=== PATIENT | female | born 1985 | race American Indian/Alaskan Native ===

== ENCOUNTER 2018-02-17 22:32 | Emergency (ER) | payer BC, MEDICAID ==
[2018-02-17 22:57] VITALS: BP 117/66
[2018-02-18 00:20] LABS: Basophils % (Auto) 0.3 % (0.0-1.8); Eosinophils # (Auto) 0.1 K/mm3 (0.0-0.4); Eosinophils % (Auto) 0.7 % (0.0-4.3); Hematocrit 34.8 % (30.3-42.9); Hemoglobin 11.6 gm/dl (10.1-14.3); Lymphocytes # (Auto) 2.8 K/mm3 (1.2-5.4); Lymphocytes % (Auto) 21.5 % (13.4-35.0); Mean Corpuscular HGB Conc 33 % (30-34); Mean Corpuscular Hemoglobin 29 pg (28-32); Mean Corpuscular Volume 86 fl (79-97); Monocytes # (Auto) 0.6 K/mm3 (0.0-0.8); Monocytes % (Auto) 4.8 % (0.0-7.3); Platelet Count 295 K/mm3 (140-440); Red Blood Count 4.04 M/mm3 (3.65-5.03)
--- NOTE | 2018-02-19 14:29 | Ultrasound Report ---
FINAL REPORT PROCEDURE: US OB > = 14 WEEKS FETUS TECHNIQUE: Real-time limited sonographic examination was performed for evaluation of size, position, heartbeat, fluid volume for each fetus with image documentation (1 or more fetuses). CPT 30584 HISTORY: vaginal bleeding COMPARISON: No prior studies are available for comparison. FINDINGS: MATERNAL Uterus: Within normal limits . Cervix length: 3.5 cm. Internal Os: Closed . FETUS IUP: Single living intrauterine . Position: Cephalic. Placental position: Posterior, without previa . Amniotic fluid volume: Normal . Heart rate and rhythm: 148 BPM, Regular . anatomic survey: Normal . MEASUREMENTS BPD: 2.7 centimeters corresponding to 14 weeks and 5 days HC: 9.9 centimeters correspond to 14 weeks and 4 days. AC: 7.7 centimeters correspond to 14 weeks and 1 day. FL: 1.5 centimeters correspond to 14 weeks and 3 days. Mean Gestational Age (composite criteria): 14 weeks and 3 days. Ratio biometry: Normal . Estimated Weight: grams. Interval growth: Appropriate . Estimated Due Date (earliest scan): 08/16/2018. IMPRESSION: 1. Single living intrauterine gestation at approximately 14 weeks and 3 days. 2. EDC by US 08/16/2018.
== END 2018-02-18 03:00 | disposition left against medical advice (07) ==
LOC: ED 22:32
DX: N93.9 Abnormal uterine and vaginal bleeding, unspecified (principal); Z53.21 Procedure and treatment not carried out due to patient leaving prior to being seen by health care provider
CPT/HCPCS: 36415; 76805; 84702; 85025; 86850; 86900; 86901

== ENCOUNTER 2018-04-03 07:34 | Outpatient (CLI) | payer BC, OTHER ==
--- NOTE | 2018-05-10 18:08 | Vascular Lab Report ---
Inferior vena cava duplex Reason for exam: Inferior vena cava mass Comments: The study is somewhat technically limited because the patient is 20 weeks . The inferior vena cava was visualized and no masses were identified. No evidence of thrombosis was seen in the common iliac veins, external iliac veins, or the common femoral veins. Impression: This study does not support the presence of an inferior vena cava mass. No evidence of acute deep venous thrombosis noted in the veins visualized. Study is somewhat technically limited because of patient's .
== END 2018-04-03 07:35 | disposition home or self-care (01) ==
LOC: VAS 07:34
PROVIDERS: ATTEND Surgery Vascular Surgery
DX: O9A.212 Injury, poisoning and certain other consequences of external causes complicating pregnancy, second trimester (principal); S35.1 Injury of inferior vena cava; Z3A.26 26 weeks gestation of pregnancy; Z87.891 Personal history of nicotine dependence; X58.XXXS Exposure to other specified factors, sequela
CPT/HCPCS: 93979

== ENCOUNTER 2018-07-12 10:30 | Outpatient (CLI) | payer BC, OTHER ==
[2018-07-12 11:13] VITALS: BP 117/68
[2018-07-12 11:22] LABS: Bilirubin,Urine NEG (Negative); Blood,Urine SM (Negative); Color,Urine Yellow (Yellow); Mucus,Urine FEW /HPF; Protein,Urine <15 mg/dL mg/dL (Negative); Urobilinogen,Urine < 2.0 mg/dL (<2.0)
[2018-07-12] MEDS ORDERED: LACTATED RINGERS 500 ML IV ONE (12:10)
== END 2018-07-12 12:51 | disposition home or self-care (01) ==
LOC: TRG 10:30
PROVIDERS: ATTEND Obstetrics & Gynecology
DX: O47.03 False labor before 37 completed weeks of gestation, third trimester (principal); Z3A.35 35 weeks gestation of pregnancy
CPT/HCPCS: 59025; 81001

== ENCOUNTER 2019-04-15 17:58 | Emergency (ER) | payer SELFPAY ==
--- NOTE | 2019-04-15 18:59 | Emergency Department Report ---
Blank Doc - Documentation Documentation: This is a 33-year-old female that presents with pelvic pain and headache. Den ies worst headache. Denies any vaginal bleeding. Denies any head trauma. Stated is but denies knowing how long. This initial assessment/diagnostic orders/clinical plan/treatment(s) is/are subject to change based on patient's health status, clinical progression and re- assessment by fellow clinical providers in the ED. Further treatment and workup at subsequent clinical providers discretion. Patient/guardians urged not to elope from the ED as their condition may be serious if not clinically assessed and managed. Initial orders include: 1- Patient sent to [facility] for further evaluation and treatment 2- labs 3- UA
[2019-04-15 19:01] VITALS: BP 111/71
[2019-04-15 20:27] LABS: Basophils # (Auto) 0.1 K/mm3 (0.0-0.1); Basophils % (Auto) 0.4 % (0.0-1.8); Eosinophils % (Auto) 0.4 % (0.0-4.3); Hematocrit 36.7 % (30.3-42.9); Hemoglobin 12.5 gm/dl (10.1-14.3); Lymphocytes # (Auto) 2.9 K/mm3 (1.2-5.4); Lymphocytes % (Auto) 21.5 % (13.4-35.0); Mean Corpuscular HGB Conc 34 % (30-34); Mean Corpuscular Volume 86 fl (79-97); Monocytes # (Auto) 0.6 K/mm3 (0.0-0.8); Monocytes % (Auto) 4.8 % (0.0-7.3); Platelet Count 305 K/mm3 (140-440); Red Blood Count 4.25 M/mm3 (3.65-5.03)
[2019-04-15 20:41] LABS: BUN/Creatinine Ratio 18; Blood Urea Nitrogen 7 mg/dL (7-17); Calcium 10.1 mg/dL (8.4-10.2); Hemolysis Index 3
--- NOTE | 2019-04-15 21:06 | Ultrasound Report ---
ULTRASOUND OBSTETRIC Indication: female with pelvic pain. Findings: There is a single, living intrauterine . The femur length measures 1.1 cm at 13 weeks and 2 days and bipyramidal diameter is 1.9 cm measuring 13 weeks and 0 days. heart rate is 162 beats per minute. The right ovary is normal. The left ovary is not well identified secondary to bowel gas. Impression: Single, living intrauterine with estimated sonographic age of 13 weeks, 0 day(s). Signer Name: Kaveh Francois MD Signed: 04/15/2019 9:01 PM Workstation Name: [id number]
[2019-04-15] MEDS ORDERED: TYLENOL PO ONE (21:19)
[2019-04-15] MEDS ORDERED: REGLAN PO ONE (21:19)
[2019-04-15] MEDS ORDERED: DECADRON IM ONE (21:19)
[2019-04-15] MEDS ORDERED: BENADRYL PO ONE (21:19)
[2019-04-15 21:33] LABS: Bilirubin,Urine NEG (Negative); Blood,Urine NEG (Negative); Calcium Oxalate Crystals,Urine FEW; Color,Urine Yellow (Yellow); Mucus,Urine 2+ /HPF; Protein,Urine <15 mg/dL mg/dL (Negative); Urobilinogen,Urine < 2.0 mg/dL (<2.0)
--- NOTE | 2019-04-15 22:52 | Emergency Department Report ---
ED Headache HPI - General Chief Complaint: Abdominal Pain Stated Complaint: /HEADACHE/STOMACH PAIN Time Seen by Provider: 04/15/19 18:57 - History of Present Illness Initial Comments: Patient's a 33-year-old female A0 who presents for headache frontal 3 days this is a recurring problem she has history of recurring headaches patient currently 13 weeks states intermittent abdominal cramping normal for her is a vaginal discharge no back pain no nausea vomiting no fever or chills his eyelids see it added abdominal pain in triage to check status there is no bleeding no cramping of concern Timing/Duration: other (3 days ) Quality: moderate Head Injury Location: frontal Recent Head Trauma: occasional headaches Associated Symptoms: nausea/vomiting Allergies/Adverse Reactions: Allergies Cephalosporins Allergy (Verified 04/15/19 18:00) Rash Penicillins Allergy (Verified 04/15/19 18:00) Rash Home Medications: Ambulatory Orders Acetaminophen [Tylenol Arthritis] 650 mg PO QDAY 08/06/18 Vit-Fe Fumar-FA [ Vitamin] 1 tab PO QDAY 08/06/18 Ferrous Sulfate [Feosol 325 MG tab] 325 mg PO BID #60 tablet 08/16/18 Ibuprofen [Motrin 800 MG tab] 800 mg PO Q6H PRN #30 tablet 08/16/18 oxyCODONE /ACETAMINOPHEN [Percocet 5/325 mg] 1 - 2 tab PO Q4H PRN #30 tablet 08/16/18 Acetaminophen [Acetaminophen TAB] 1,000 mg PO Q6HR PRN #30 tablet 04/15/19 Metoclopramide [Reglan] 10 mg PO Q6H PRN #30 tablet 04/15/19 diphenhydrAMINE [Benadryl CAP] 25 mg PO Q6HR PRN #30 capsule 04/15/19 ED Review of Systems ROS: Stated complaint: /HEADACHE/STOMACH PAIN Other details as noted in HPI Constitutional: denies: chills, fever, malaise Eyes: denies: eye pain, eye discharge, vision change ENT: congestion. denies: ear pain, throat pain Respiratory: denies: cough, shortness of breath, wheezing Cardiovascular: denies: chest pain, palpitations Endocrine: no symptoms reported Gastrointestinal: abdominal pain. denies: nausea, vomiting, diarrhea, c onstipation, hematemesis, hematochezia Genitourinary: denies: urgency, dysuria, frequency, hematuria, discharge, dyspareunia Musculoskeletal: denies: back pain, joint swelling, arthralgia Skin: denies: rash, lesions Neurological: headache. denies: weakness, numbness, paresthesias, confusion, abnormal gait, vertigo Psychiatric: denies: anxiety, depression Hematological/Lymphatic: denies: easy bleeding, easy bruising ED Past Medical Hx - Past Medical History Hx Hypertension: No Hx Congestive Heart Failure: No Hx Diabetes: No Hx Deep Vein Thrombosis: No Hx Renal Disease: No Hx Sickle Cell Disease: No Hx Headaches / Migraines: Yes Hx Seizures: No Hx Psychiatric Treatment: Yes (anxiety) Hx Asthma: No Hx COPD: No Hx HIV: No Additional medical history: heart murmur, chronic hip/back pain - Surgical History Additional Surgical History: cyst removed from ovaries - Social History Smoking Status: Never Smoker Substance Use Type: None - Medications Home Medications: Home Medications Medication Instructions Recorded Confirmed Last Taken Type Acetaminophen [Tylenol Arthritis] 650 mg PO QDAY 08/06/18 08/17/18 08/15/18 22:00 History Vit-Fe Fumar-FA [ 1 tab PO QDAY 08/06/18 08/17/18 08/16/18 10:00 History Vitamin] Ferrous Sulfate [Feosol 325 MG tab] 325 mg PO BID #60 tablet 08/16/18 Unknown Rx Ibuprofen [Motrin 800 MG tab] 800 mg PO Q6H PRN #30 tablet 08/16/18 Unknown Rx oxyCODONE /ACETAMINOPHEN [Percocet 1 - 2 tab PO Q4H PRN #30 tablet 08/16/18 Unknown Rx 5/325 mg] Acetaminophen [Acetaminophen TAB] 1,000 mg PO Q6HR PRN #30 tablet 04/15/19 Unknown Rx Metoclopramide [Reglan] 10 mg PO Q6H PRN #30 tablet 04/15/19 Unknown Rx diphenhydrAMINE [Benadryl CAP] 25 mg PO Q6HR PRN #30 capsule 04/15/19 Unknown Rx ED Physical Exam - General Limitations: No Limitations General appearance: alert, in no apparent distress - Head Head exam: Present: atraumatic, normocephalic - Eye Eye exam: Present: normal appearance, PERRL. Absent: conjunctival injection, nystagmus Pupils: Present: normal accommodation - ENT ENT exam: Present: normal exam, normal orophraynx, mucous membranes dry. Absent: TM's normal bilaterally, normal external ear exam - Expanded ENT Exam Expanded Ear exam: Present: normal external inspection Mouth exam: Absent: trismus Teeth exam: Present: normal inspection Throat exam: Negative: tonsillar erythema, tonsillomegaly, tonsillar exudate, R peritonsillar mass, L peritonsillar mass - Neck Neck exam: Present: normal inspection, full ROM. Absent: tenderness, meningismus, lymphadenopathy, thyromegaly - Respiratory Respiratory exam: Present: normal lung sounds bilaterally. Absent: respiratory distress, wheezes, stridor, chest wall tenderness - Cardiovascular Cardiovascular Exam: Present: regular rate, normal rhythm, normal heart sounds. Absent: systolic murmur, diastolic murmur, rubs, gallop - GI/Abdominal GI/Abdominal exam: Present: soft, normal bowel sounds. Absent: distended, tenderness, guarding, rebound, rigid, bruit, hernia - Expanded GI/Abdominal Exam Expanded GI/Abdominal exam: Absent: psoas sign, obturator sign, heel tap sign, Rodríguez's sign, Rovsing's sign, tenderness at [place]'s Point, ascites - Rectal Rectal exam: Present: deferred - Extremities Exam Extremities exam: Present: normal inspection, full ROM, normal capillary refill. Absent: tenderness, pedal edema, joint swelling, calf tenderness - Back Exam Back exam: Present: normal inspection, full ROM. Absent: tenderness, CVA tenderness (R), muscle spasm, paraspinal tenderness, vertebral tenderness, rash noted - Neurological Exam Neurological exam: Present: alert, oriented X3, CN II-XII intact, normal gait, reflexes normal. Absent: motor sensory deficit - Psychiatric Psychiatric exam: Present: normal affect, normal mood - Skin Skin exam: Present: warm, dry, intact, normal color. Absent: rash ED Course Vital Signs 04/15/19 18:57 Temperature 99.1 F Pulse Rate 101 H Respiratory 18 Rate Blood Pressure 111/71 O2 Sat by Pulse 98 Oximetry ED Medical Decision Making - Lab Data Result diagrams: 04/15/19 19:48 04/15/19 19:48 Labs 04/15/19 04/15/19 04/15/19 19:48 19:48 19:48 WBC 13.4 H RBC 4.25 Hgb 12.5 Hct 36.7 MCV 86 MCH 29 MCHC 34 RDW 14.0 Plt Count 305 Lymph % (Auto) 21.5 Williamson % (Auto) 4.8 Eos % (Auto) 0.4 Baso % (Auto) 0.4 Lymph # 2.9 Williamson # 0.6 Eos # 0.0 Baso # 0.1 Seg Neutrophils % 72.9 H Seg Neutrophils # 9.8 H Sodium 137 Potassium 3.8 Chloride 102.6 Carbon Dioxide 23 Anion Gap 15 BUN 7 Creatinine 0.4 L Estimated GFR > 60 BUN/Creatinine Ratio 18 Glucose 94 Calcium 10.1 HCG, Qual Positive Urine Color Urine Turbidity Urine pH Ur Specific [place] Urine Protein Urine Glucose (UA) Urine Ketones Urine Blood Urine Nitrite Urine Bilirubin Urine Urobilinogen Ur Leukocyte Esterase Urine WBC (Auto) Urine RBC (Auto) U Epithel Cells (Auto) Calcium Oxalate Crystal Urine Mucus 04/15/19 21:03 WBC RBC Hgb Hct MCV MCH MCHC RDW Plt Count Lymph % (Auto) Williamson % (Auto) Eos % (Auto) Baso % (Auto) Lymph # Williamson # Eos # Baso # Seg Neutrophils % Seg Neutrophils # Sodium Potassium Chloride Carbon Dioxide Anion Gap BUN Creatinine Estimated GFR BUN/Creatinine Ratio Glucose Calcium HCG, Qual Urine Color Yellow Urine Turbidity Slightly-cloudy Urine pH 5.0 Ur Specific [place] 1.028 Urine Protein <15 mg/dl Urine Glucose (UA) Neg Urine Ketones Neg Urine Blood Neg Urine Nitrite Neg Urine Bilirubin Neg Urine Urobilinogen < 2.0 Ur Leukocyte Esterase Neg Urine WBC (Auto) 2.0 Urine RBC (Auto) 3.0 U Epithel Cells (Auto) 2.0 Calcium Oxalate Crystal Few Urine Mucus 2+ - Radiology Data Radiology results: report reviewed, image reviewed Ordering Physician: YASIR SILVA NP Date of Service: 04/15/19 Procedure(s): US OB <= 14 weeks fetus Accession Number(s): [id number] cc: YASIR SILVA NP ULTRASOUND OBSTETRIC Indication: female with pelvic pain. Findings: There is a single, living intrauterine . The femur length measures 1.1 cm at 13 weeks and 2 days and bipyramidal diameter is 1.9 cm measuring 13 weeks and 0 days. heart rate is 162 beats per minute. The right ovary is normal. The left ovary is not well identified secondary to bowel gas. Impression: Single, living intrauterine with estimated sonographic age of 13 weeks, 0 day(s). Signer Name: Kaveh Francois MD Signed: 04/15/2019 9:01 PM Workstation Name: [id number] Transcribed By: Dictated By: Kaveh Francois MD Electronically Authenticated By: Kaveh Francois MD Signed Date/Time: 04/15/192100 DD/ 52 TD/TT: - Medical Decision Making US: Single IUP, 13 weeks and 0 days, FHR: 162 bmpm, headache resolved , there is no fever no chills no n/v plan benadryl, tylenol, reglan, follow up with OBGYN in 1-2 days return to ed if symptoms worsen. Critical care attestation.: If time is entered above; I have spent that time in minutes in the direct care of this critically ill patient, excluding procedure time. ED Disposition Clinical Impression: Headache Qualifiers: Headache type: unspecified Headache chronicity pattern: acute headache Intractability: not intractable Qualified Code(s): R51 - Headache Qualifiers: Weeks of gestation: 13 weeks Qualified Code(s): Z3A.13 - 13 weeks gestation of Disposition: DC-01 TO HOME OR SELFCARE Is pt being admited?: No Does the pt Need Aspirin: No Condition: Stable Instructions: Abdominal Pain (ED), Acute Headache (ED) Prescriptions: Acetaminophen [Acetaminophen TAB] 1,000 mg PO Q6HR PRN #30 tablet PRN Reason: Headache diphenhydrAMINE [Benadryl CAP] 25 mg PO Q6HR PRN #30 capsule PRN Reason: Headache Metoclopramide [Reglan] 10 mg PO Q6H PRN #30 tablet PRN Reason: Headache Referrals: KASHIF BLOCK MD [Staff Physician] - 3-5 Days Forms: AMA Form, Work/School Release Form(ED) Time of Disposition: 23:00
== END 2019-04-15 23:16 | disposition home or self-care (01) ==
LOC: ED 17:58
DX: O26.891 Other specified pregnancy related conditions, first trimester (principal); R10.2 Pelvic and perineal pain; R51 Headache; Z3A.13 13 weeks gestation of pregnancy; Z79.899 Other long term (current) drug therapy; Z88.0 Allergy status to penicillin; Z88.8 Allergy status to other drugs, medicaments and biological substances
CPT/HCPCS: 36415; 76801; 80048; 81001; 84703; 85025; 99284; J1100

== ENCOUNTER 2019-05-22 10:27 | Emergency (ER) | payer SELFPAY ==
--- NOTE | 2019-05-22 11:05 | Emergency Department Report ---
ED N/V/D HPI - General Chief complaint: Nausea/Vomiting/Diarrhea Stated complaint: 17WKS /STOMACH VIRUS Time Seen by Provider: 05/22/19 11:03 Source: patient Mode of arrival: Ambulatory Limitations: No Limitations - History of Present Illness Initial comments: Patient is a 33-year-old female that presents emergency room with complaints of nausea vomiting diarrhea 3 days. Patient states her CHOIR TEACHER sent her here for IV fluids. Patient states she is 17 weeks . Patient states she's not been able to hold any fluids or solid foods down for 2 solid days. Patient denies fever and chills. Patient denies abdominal pain. Patient denies vaginal discharge. Patient denies loss of her vagina. Patient denies contractions. Patient denies blood in her vomitus. Patient denies blood in her stool. She states she feels dry. Patient states she is a and 17 weeks States she had care. Patient states her ultrasounds have been normal. Patient states all her labs have been normal. MD complaint: nausea, vomiting, diarrhea Description of Vomiting: watery Description of Diarrhea: water Associated Abdominal Pain: No Severity: severe Consistency: constant Improves with: rest Worsens with: eating, vomiting Associated Symptoms: nausea/vomiting. denies: myalgias, chest pain, cough, diaphoresis, fever/chills, headaches, loss of appetite, malaise, rash, dysuria, shortness of breath, syncope, weakness - Related Data Home Medications Medication Instructions Recorded Confirmed Last Taken Acetaminophen [Tylenol Arthritis] 650 mg PO QDAY 08/06/18 08/17/18 08/15/18 22:00 Vit-Fe Fumar-FA [ 1 tab PO QDAY 08/06/18 08/17/18 08/16/18 10:00 Vitamin] Previous Rx's Medication Instructions Recorded Last Taken Type Ferrous Sulfate [Feosol 325 MG tab] 325 mg PO BID #60 tablet 08/16/18 Unknown Rx Ibuprofen [Motrin 800 MG tab] 800 mg PO Q6H PRN #30 tablet 08/16/18 Unknown Rx oxyCODONE /ACETAMINOPHEN [Percocet 1 - 2 tab PO Q4H PRN #30 tablet 08/16/18 Unknown Rx 5/325 mg] Acetaminophen [Acetaminophen TAB] 1,000 mg PO Q6HR PRN #30 tablet 04/15/19 Unknown Rx Metoclopramide [Reglan] 10 mg PO Q6H PRN #30 tablet 04/15/19 Unknown Rx diphenhydrAMINE [Benadryl CAP] 25 mg PO Q6HR PRN #30 capsule 04/15/19 Unknown Rx Ondansetron [Zofran Odt] 4 mg PO Q6HR PRN #15 tab.rapdis 05/22/19 Unknown Rx Allergies Allergy/AdvReac Type Severity Reaction Status Date / Time Cephalosporins Allergy Rash Verified 04/15/19 18:00 Penicillins Allergy Rash Verified 04/15/19 18:00 ED Review of Systems ROS: Stated complaint: 17WKS /STOMACH VIRUS Other details as noted in HPI Constitutional: denies: chills, fever Eyes: denies: eye pain, eye discharge, vision change ENT: denies: ear pain, throat pain Respiratory: denies: cough, shortness of breath, wheezing Cardiovascular: denies: chest pain, palpitations Endocrine: no symptoms reported Gastrointestinal: nausea, vomiting, diarrhea. denies: abdominal pain Genitourinary: denies: urgency, dysuria, discharge Musculoskeletal: denies: back pain, joint swelling, arthralgia Skin: denies: rash, lesions Neurological: denies: headache, weakness, paresthesias Psychiatric: denies: anxiety, depression Hematological/Lymphatic: denies: easy bleeding, easy bruising ED Past Medical Hx - Past Medical History Previous Medical History?: Yes Hx Hypertension: No Hx Congestive Heart Failure: No Hx Diabetes: No Hx Deep Vein Thrombosis: No Hx Renal Disease: No Hx Sickle Cell Disease: No Hx Headaches / Migraines: Yes Hx Seizures: No Hx Psychiatric Treatment: Yes (anxiety) Hx Asthma: No Hx COPD: No Hx HIV: No Additional medical history: heart murmur, chronic hip/back pain - Surgical History Past Surgical History?: Yes Additional Surgical History: cyst removed from ovaries - Family History Family history: no significant - Social History Smoking Status: Never Smoker Substance Use Type: None - Medications Home Medications: Home Medications Medication Instructions Recorded Confirmed Last Taken Type Acetaminophen [Tylenol Arthritis] 650 mg PO QDAY 08/06/18 08/17/18 08/15/18 22:00 History Vit-Fe Fumar-FA [ 1 tab PO QDAY 08/06/18 08/17/18 08/16/18 10:00 History Vitamin] Ferrous Sulfate [Feosol 325 MG tab] 325 mg PO BID #60 tablet 08/16/18 Unknown Rx Ibuprofen [Motrin 800 MG tab] 800 mg PO Q6H PRN #30 tablet 08/16/18 Unknown Rx oxyCODONE /ACETAMINOPHEN [Percocet 1 - 2 tab PO Q4H PRN #30 tablet 08/16/18 Unknown Rx 5/325 mg] Acetaminophen [Acetaminophen TAB] 1,000 mg PO Q6HR PRN #30 tablet 04/15/19 Unknown Rx Metoclopramide [Reglan] 10 mg PO Q6H PRN #30 tablet 04/15/19 Unknown Rx diphenhydrAMINE [Benadryl CAP] 25 mg PO Q6HR PRN #30 capsule 04/15/19 Unknown Rx Ondansetron [Zofran Odt] 4 mg PO Q6HR PRN #15 tab.rapdis 05/22/19 Unknown Rx ED Physical Exam - General Limitations: No Limitations General appearance: alert, in no apparent distress - Head Head exam: Present: atraumatic, normocephalic - Eye Eye exam: Present: normal appearance - ENT ENT exam: Present: mucous membranes moist - Neck Neck exam: Present: normal inspection - Respiratory Respiratory exam: Present: normal lung sounds bilaterally. Absent: respiratory distress - Cardiovascular Cardiovascular Exam: Present: regular rate, normal rhythm. Absent: systolic murmur, diastolic murmur, rubs, gallop - GI/Abdominal GI/Abdominal exam: Present: soft, distended (gravid abdomen noted), normal bowel sounds. Absent: tenderness, guarding, rebound - Extremities Exam Extremities exam: Present: normal inspection - Back Exam Back exam: Present: normal inspection - Neurological Exam Neurological exam: Present: alert, oriented X3 - Psychiatric Psychiatric exam: Present: normal affect, normal mood - Skin Skin exam: Present: warm, dry, intact, normal color. Absent: rash ED Course Vital Signs 05/22/19 05/22/19 10:33 11:37 Temperature 99.1 F Pulse Rate 111 H Respiratory 16 16 Rate Blood Pressure 212/64 [Right] O2 Sat by Pulse 98 Oximetry - Reevaluation(s) Reevaluation #1: Patient states she is feeling better. Patient denies nausea. Patient given a by mouth challenge. 05/22/19 12:40 Reevaluation #2: Patient tolerated by mouth intake. I discussed all results with patient. I discussed plan of care with patient. Patient agrees with plan of care. Patient is stable for discharge. Patient will be discharged home. Patient given discharge instructions. Patient voiced understanding of discharge instructions 05/22/19 12:58 ED Medical Decision Making - Lab Data Result diagrams: 05/22/19 11:34 05/22/19 11:34 - Medical Decision Making Vision is a 33-year-old female that presents emergency room for nausea and vomiting and dehydration. Patient was sent to her by her CHOIR TEACHER for IV fluids. Patient found to be dehydrated. Patient responded well to therapy. Patient's symptoms are resolved after fluids and antiemetics. Patient tolerated a by mouth challenge. Patient discharged home. Patient given discharge instructions. Patient's labs essentially unremarkable except for mild hyponatremia and hypokalemia with dehydration. Patient's nausea vomiting and symptoms secondary to viral gastroenteritis. - Differential Diagnosis gastroneuritis. Virus. Nausea vomiting. . Critical Care Time: Yes Critical care attestation.: If time is entered above; I have spent that time in minutes in the direct care of this critically ill patient, excluding procedure time. Critical Care Time: 35 minutes ED Disposition Clinical Impression: Gastroenteritis, Dehydration Qualifiers: Weeks of gestation: 17 weeks Qualified Code(s): Z3A.17 - 17 weeks gestation of Nausea & vomiting Qualifiers: Vomiting type: unspecified Vomiting Intractability: non-intractable Qualified Code(s): R11.2 - Nausea with vomiting, unspecified Disposition: DC-01 TO HOME OR SELFCARE Is pt being admited?: No Does the pt Need Aspirin: No Condition: Stable Instructions: Gastroenteritis (ED), Acute Nausea and Vomiting (ED) Additional Instructions: Patient to follow up with primary care in 2-3 days. Patient to follow-up with O B/HOUSING GRANT ANALYST in 2-3 days. Patient to return to ER if condition worsens. Patient take meds as directed. Patient to rest. Patient to take Tylenol when necessary for pain. Patient to increase water. Patient to eat a [place] diet. Prescriptions: Ondansetron [Zofran Odt] 4 mg PO Q6HR PRN #15 tab.rapdis PRN Reason: Nausea And Vomiting Referrals: CONNIE TAVARES MD [Primary Care Provider] - 2-3 Days VIOLA BURNS MD [Staff Physician] - 2-3 Days Time of Disposition: 13:01
[2019-05-22] MEDS ORDERED: ZOFRAN IV ONE (11:06)
[2019-05-22] MEDS ORDERED: NACL 0.9% 1000 ML 1,000 ML IV ONE (11:06)
[2019-05-22 12:16] LABS: Hematocrit 37.1 % (30.3-42.9); Hemoglobin 12.5 gm/dl (10.1-14.3); Mean Corpuscular HGB Conc 34 % (30-34); Mean Corpuscular Volume 86 fl (79-97); Platelet Count 283 K/mm3 (140-440); Red Blood Count 4.31 M/mm3 (3.65-5.03)
[2019-05-22 12:39] LABS: Alanine Aminotransferase 19 units/L (7-56); BUN/Creatinine Ratio 15; Blood Urea Nitrogen 6 mg/dL (7-17); Calcium 8.8 mg/dL (8.4-10.2); Hemolysis Index 0
[2019-05-22 13:23] VITALS: BP 114/66
[2019-05-22 13:47] LABS: Basophils % (Manual) 0 % (0.0-1.8); Eosinophils % (Manual) 0 % (0.0-4.3); Total Cells Counted 100
[2019-05-22 13:48] LABS: Platelet Estimate Consistent w Auto; RBC Morphology Normal
== END 2019-05-22 13:23 | disposition home or self-care (01) ==
LOC: ED 10:27
DX: K52.9 Noninfective gastroenteritis and colitis, unspecified (principal); E86.0 Dehydration; Z3A.17 17 weeks gestation of pregnancy; G43.909 Migraine, unspecified, not intractable, without status migrainosus; J45.909 Unspecified asthma, uncomplicated; G89.29 Other chronic pain; Z79.899 Other long term (current) drug therapy; Z88.0 Allergy status to penicillin; Z88.1 Allergy status to other antibiotic agents
CPT/HCPCS: 36415; 80053; 84702; 84703; 85007; 85025; 96374; 99291; J2405; J7030

== ENCOUNTER 2019-08-12 12:14 | Outpatient (CLI) | payer OTHER ==
[2019-08-12] MEDS ORDERED: LACTATED RINGERS 500 ML IV ONE (13:22)
[2019-08-12] MEDS ORDERED: LACTATED RINGERS 1,000 ML IV SCH (14:00)
[2019-08-12] MEDS ORDERED: TERBUTALINE 1 MG/1 ML INJ SUB-Q ONE (14:21)
[2019-08-12 16:12] VITALS: BP 127/66
== END 2019-08-12 16:49 | disposition home or self-care (01) ==
LOC: TRG 12:14 → LD 12:14 → TRG 12:15
PROVIDERS: ATTEND Obstetrics & Gynecology
DX: O60.03 Preterm labor without delivery, third trimester (principal); O09.523 Supervision of elderly multigravida, third trimester; Z3A.28 28 weeks gestation of pregnancy
CPT/HCPCS: 96372; J3105; J7120; 96360

== ENCOUNTER 2019-09-06 19:33 | Outpatient (CLI) | payer OTHER ==
[2019-09-06 23:25] VITALS: BP 120/74
== END 2019-09-06 23:36 | disposition left against medical advice (07) ==
LOC: TRG 19:33
PROVIDERS: ATTEND Obstetrics & Gynecology
DX: O26.893 Other specified pregnancy related conditions, third trimester (principal); O09.523 Supervision of elderly multigravida, third trimester; Z3A.32 32 weeks gestation of pregnancy
CPT/HCPCS: 59025

== ENCOUNTER 2019-09-15 14:46 | Outpatient (CLI) | payer OTHER ==
[2019-09-15] MEDS: TERBUTALINE 1 MG/1 ML INJ SUB-Q SCH ×2 (16:10→18:16)
[2019-09-15] MEDS ORDERED: LACTATED RINGERS 500 ML IV ONE (16:18)
[2019-09-15 16:21] VITALS: BP 122/63
[2019-09-15 17:01] LABS: Bacteria,Urine 4+ /HPF (Negative); Bilirubin,Urine NEG (Negative); Blood,Urine NEG (Negative); Color,Urine Straw (Yellow); Hyaline Casts,Urine 6 /LPF; Protein,Urine <15 mg/dL mg/dL (Negative); Urobilinogen,Urine < 2.0 mg/dL (<2.0)
[2019-09-15 18:10] LABS: Amphetamine Screen,Urine PRESUMPTIVE NEGATIVE; Benzodiazepines Screen,Urine PRESUMPTIVE NEGATIVE; Cannabinoid Screen,Urine PRESUMPTIVE NEGATIVE; Cocaine Screen,Urine PRESUMPTIVE NEGATIVE; Methadone Screen,Urine PRESUMPTIVE NEGATIVE; Opiate Screen,Urine PRESUMPTIVE NEGATIVE
== END 2019-09-15 18:32 | disposition home or self-care (01) ==
LOC: TRG 14:46
PROVIDERS: ATTEND Obstetrics & Gynecology
DX: O62.9 Abnormality of forces of labor, unspecified (principal); O26.893 Other specified pregnancy related conditions, third trimester; R10.30 Lower abdominal pain, unspecified; O99.353 Diseases of the nervous system complicating pregnancy, third trimester; G43.909 Migraine, unspecified, not intractable, without status migrainosus; Z3A.33 33 weeks gestation of pregnancy; Z87.891 Personal history of nicotine dependence
CPT/HCPCS: 36415; 59025; 80307; 81001; 82731; 87086; 96360; 96372; J3105; J7120

== ENCOUNTER 2019-10-09 17:31 | Outpatient (CLI) | payer OTHER ==
[2019-10-09] MEDS ORDERED: LACTATED RINGERS 1,000 ML IV ONE (17:42)
[2019-10-09] MEDS ORDERED: TERBUTALINE 1 MG/1 ML INJ ONE (17:47)
[2019-10-09] MEDS ORDERED: LACTATED RINGERS 1,000 ML ONE (17:47)
[2019-10-09] MEDS ORDERED: TERBUTALINE 1 MG/1 ML INJ SUB-Q SCH (18:00)
[2019-10-09 18:01] VITALS: BP 116/72
[2019-10-09] MEDS ORDERED: LACTATED RINGERS 1,000 ML IV SCH (19:00)
== END 2019-10-09 19:23 | disposition home or self-care (01) ==
LOC: TRG 17:31
PROVIDERS: ATTEND Obstetrics & Gynecology
DX: O62.9 Abnormality of forces of labor, unspecified (principal); O99.353 Diseases of the nervous system complicating pregnancy, third trimester; G43.909 Migraine, unspecified, not intractable, without status migrainosus; Z3A.37 37 weeks gestation of pregnancy; Z87.891 Personal history of nicotine dependence
CPT/HCPCS: 59025; 96360; 96361; 96372; J3105; J7120

== ENCOUNTER 2019-10-18 10:40 | Inpatient (IN) | payer OTHER ==
[2019-10-18 11:49] LABS: Hematocrit 36.5 % (30.3-42.9); Hemoglobin 12.7 gm/dl (10.1-14.3); Mean Corpuscular HGB Conc 35 % (30-34); Mean Corpuscular Volume 85 fl (79-97); Platelet Count 205 K/mm3 (140-440); Red Blood Count 4.29 M/mm3 (3.65-5.03); Red Cell Distribution Width 14.1 % (13.2-15.2)
[2019-10-18 11:53] LABS: Bacteria,Urine 1+ /HPF (Negative); Bilirubin,Urine NEG (Negative); Blood,Urine NEG (Negative); Color,Urine Yellow (Yellow); Hyaline Casts,Urine 1 /LPF; Protein,Urine <15 mg/dL mg/dL (Negative); Urobilinogen,Urine < 2.0 mg/dL (<2.0)
[2019-10-18] MEDS ORDERED: BICITRA ORAL LIQD 30ML PO ONE (12:06)
[2019-10-18] MEDS ORDERED: METOCLOPRAMIDE 10 MG/2 ML INJ IV ONE (12:06)
[2019-10-18] MEDS ORDERED: FAMOTIDINE 20 MG/2 ML INJ IV ONE (12:06)
[2019-10-18 12:41] LABS: Alanine Aminotransferase 7 units/L (7-56); Uric Acid 5.1 mg/dL (3.5-7.6)
[2019-10-18] MEDS ORDERED: LACTATED RINGERS 1,000 ML IV SCH (13:00)
[2019-10-18] MEDS ORDERED: OXYTOCIN 20 UNIT/1000ML DRIP 20 UNITS/1,000 ML BAG IV SCH ×2 (13:00→19:00)
--- NOTE | 2019-10-18 13:16 | History and Physical Report ---
History of Present Illness Date of examination: 10/18/19 Date of admission: 10/18/19 12:49 Chief complaint: headache, prev c/s, elevated b/p sent from office History of present illness: EDC 10/29/19 Past History : 2 Term Births: 1 Premature Births: 0 Living Children: 1 Para: 1 Mult. Births: 0 Prev : 1 Prev. attempt? 0 Aborta: 0 Elect. Ab: 0 Spont. 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 % Dietary Counseling: pn yes Past Surgical History: b/l ovarian cyst h/o both tubes being blocked and one was surgically corrected to allow patency(2012) c/s 2017 Past Medical History 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 [facility] occ etoh, no drugs Infection History Hx of STD: none HIV Risk Eval: no Hepatitis B Risk Eval: low risk Personal hx. of genital herpes: no Partner hx. of genital herpes: no Rash, Viral, or Febrile illness since last LMP? no Varicella/Chicken Pox Status: Previous Disease TB Risk: no Genetic History ADVANCED MATERNAL AGE Congenital Heart Defect: Mom: no Dad: no Macey Disease: Mom: no Dad: no Thalassemia Mom: no Dad: no Neural Tube Defect Mom: no Dad: no Down's Syndrome Mom: no Dad: no Wesley-Sachs Mom: no Dad: no Sickle Cell Disease/Trait Mom: no Dad: no Hemophilia Mom: no Dad: no Muscular Dystrophy Mom: no Dad: no Cystic Fibrosis Mom: no Dad: no Fadia Chorea Mom: no Dad: no Mental Retardation Mom: no Dad: no Fragile X Mom: no Dad: no Other Genetic/Chromosomal Disorder Mom: no Dad: no Child w/other defect Mom: no Dad: no Enviromental Exposures Enviromental Exposures Reviewed Xray Exposure: yes Medication, drug, or alcohol use since LMP: no Chemical/Other Exposure: no Exposure to Cat Liter: no Hx of Parvovirus (Fifth Disease): no Occupational Exposure to Children: none 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, 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" Past History Past Medical History: other (see HPI) Past Surgical History: other (see HPI) 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) Family/Genetic History: other (see HPI) - Obstetrical History Expected Date of Delivery: 10/29/19 Actual Gestation: 38 Week(s) 3 Day(s) : 2 Para: 1 Hx # Term Pregnancies: 1 Number of Pregnancies: 0 Spontaneous Abortions: 0 Induced : 0 Number of Living Children: 1 Medications and Allergies Allergies Allergy/AdvReac Type Severity Reaction Status Date / Time Cephalosporins Allergy Rash Verified 08/12/19 12:53 Penicillins Allergy Rash Verified 08/12/19 12:53 Home Medications Medication Instructions Recorded Confirmed Last Taken Type Vit-Fe Fumar-FA [ 1 tab PO QDAY 08/06/18 08/12/19 08/11/19 21:00 History Vitamin] Ferrous Sulfate [Feosol 325 MG tab] 325 mg PO BID #60 tablet 08/16/18 08/12/19 08/11/19 21:00 Rx Sertraline [Zoloft] 50 mg PO QDAY 08/12/19 08/12/19 08/11/19 21:00 History Active Meds: Active Medications Oxytocin/Sodium Chloride (Pitocin/Ns 20 Unit/1000ml Drip) 20 units in 1,000 mls @ 0 mls/hr IV TITR DANNY Lactated Ringer's (Lactated Ringers) 1,000 mls @ 2,250 mls/hr IV PREOP DANNY Stop: 10/19/19 13:27 Clindamycin HCl (Cleocin 900 Mg/50 Ml) 900 mg in 50 mls @ 100 mls/hr IV PREOP NR; Protocol Stop: 10/18/19 23:59 Review of Systems All systems: negative - Vital Signs Vital signs: Vital Signs Pulse BP 109 H 120/82 10/18/19 10:58 10/18/19 10:58 Temp Pulse Resp BP Pulse Ox 98.3 F 98 H 16 123/77 10/18/19 11:20 10/18/19 13:09 10/18/19 11:20 10/18/19 13:09 - Physical Exam Breasts: Positive: normal Cardiovascular: Regular rate Lungs: Positive: Clear to auscultation, Normal air movement Abdomen: Positive: normal appearance, soft Genitourinary (Female): Positive: normal external genitalia Vagina: Positive: normal moisture Uterus: Positive: normal size, normal contour Deep Tendon Reflex Grade: Normal +2 - Obstetrical FHR: auscultation normal Uterine Contraction Monitor Mode: External Uterine Contraction Pattern: Irregular Uterine Contraction Intensity: Mild Results Result Diagrams: 10/18/19 11:30 10/18/19 11:30 Abnormal lab results 10/18/19 10/18/19 Range/Units 11:30 11:30 MCHC 35 H (30-34) % Creatinine 0.6 L (0.7-1.2) mg/dL All other labs normal. Assessment and Plan 34 y/o prev c/s, in office today for pre-op appointment. pt reported low intensity TAVAREZ, b/p 142/98. she was sent to [facility] for serial b/p's and pre-e labs. She was noted to [facility] b/p of 163/103. Plan made to proceed with repeat c/s today d/t gestational htn complicating . Dr. blake aware. c/s will performed around 1700 d/t patient's last meal. Admission and pre-op orders in EMR. Nursing staff and CN aware. - Patient Problems (1) 38 weeks gestation of Current Visit: Yes Status: Acute (2) Gestational HTN Current Visit: Yes Status: Acute Qualifiers: Trimester: third trimester Qualified Code(s): O13.3 - Gestational [-induced] hypertension without significant proteinuria, third trimester Plan to address problem: proceed with repeat c/s pre-op orders in EMR (3) Previous section Current Visit: Yes Status: Acute
--- NOTE | 2019-10-18 14:06 | Anesthesia Consultation ---
Anesthesia Consult and Med Hx Date of service: 10/18/19 - Airway Anesthetic Teeth Evaluation: Good ROM Head & Neck: Adequate Mental/Hyoid Distance: Adequate Mallampati Class: Class II Intubation Access Assessment: Good - Pulmonary Exam CTA: Yes - Cardiac Exam Cardiac Exam: RRR - Pre-Operative Health Status ASA Pre-Surgery Classification: ASA2, Emergency Proposed Anesthetic Plan: Spinal - Pulmonary Hx Asthma: No COPD: No Hx Pneumonia: No - Cardiovascular System Hx Hypertension: No - Central Nervous System Hx Seizures: No Hx Psychiatric Problems: No - Endocrine Hx Renal Disease: No Hx End Stage Renal Disease: No Hx Hypothyroidism: No Hx Hyperthyroidism: No - Hematic Hx Anemia: Yes (treated with iron after last ) Hx Sickle Cell Disease: No - Other Systems Hx Alcohol Use: Yes (occasional)
--- NOTE | 2019-10-18 14:06 | Anesthesia Day of Surgery ---
Anesthesia Day of Surgery - Day of Surgery Patient Examined: Yes Patient H&P Reviewed: Yes Patient is NPO: Yes (last meal at 9 am 10/18/2019)
[2019-10-18] MEDS ORDERED: BICITRA ORAL LIQD 30ML PO NR (15:30)
[2019-10-18] MEDS ORDERED: METOCLOPRAMIDE 10 MG/2 ML INJ IV NR (15:30)
[2019-10-18] MEDS ORDERED: FAMOTIDINE 20 MG/2 ML INJ IV NR (16:00)
[2019-10-18] MEDS ORDERED: ONDANSETRON 4 MG/2 ML INJ ONE (16:55)
[2019-10-18] MEDS ORDERED: DEXMEDETOMIDINE 200 MCG/2 ML VIAL IV ONE ×2 (16:55→18:57)
[2019-10-18] MEDS ORDERED: GENTAMICIN/NS 80 MG/100 ML 100 ML IV ONE (17:31)
[2019-10-18] MEDS ORDERED: SODIUM CHLORIDE 0.9% IRR 1,500 ML BOTTLE IR ONE (17:46)
[2019-10-18] MEDS ORDERED: WATER FOR IRRIG STERILE 1,500 ML BOTTLE IR ONE (17:46)
[2019-10-18] MEDS ORDERED: ONDANSETRON 4 MG/2 ML INJ IV PRN (17:51)
[2019-10-18] MEDS ORDERED: PROMETHAZINE 25 MG TAB PO PRN (17:51)
[2019-10-18] MEDS ORDERED: MORPHINE 4 MG/1 ML INJ IV PRN (17:51)
[2019-10-18] MEDS ORDERED: NALOXONE 0.4 MG/1 ML INJ IV PRN ×2 (17:51→18:38)
[2019-10-18] MEDS ORDERED: PROMETHAZINE 25 MG RECT SUPP PR PRN (17:51)
[2019-10-18] MEDS ORDERED: HYDROmorphone 1 MG/1 ML INJ IV PRN (17:51)
[2019-10-18] MEDS ORDERED: OXYTOCIN 10 UNIT/1 ML INJ ONE (18:05)
[2019-10-18] MEDS ORDERED: PHENYLEPHRINE/NS 1,000 MCG/10 ML SYRINGE (OR USE) IV ONE (18:05)
[2019-10-18] MEDS ORDERED: BUPIVACAINE /DEX-WATER 0.75% (2 ML) AMPULE INFILTRATI ONE (18:06)
[2019-10-18] MEDS ORDERED: KETOROLAC 30 MG/1 ML INJ ONE (18:14)
--- NOTE | 2019-10-18 18:36 | Operative Report ---
Operative Report Operative Report: Date of procedure: 10/18/2019 Pre-operative diagnosis: 38-5/7 weeks gestation Gestational hypertension Desires permanent sterilization Post-operative diagnosis: Same Procedure name(s): Repeat low transverse section via Pfannenstiel skin incision Bilateral tubal ligation via modified Rodrigo method Surgeon: Dr. Diaz Retail Team Leader: JHONNY Anesthesia: Spinal EBL: 700 mL Urine output: 200 mL of clear urine out at end of procedure Fluids: 500 mL Findings: Liveborn male weight 6 lbs. 15 oz. Apgars of 8 and 9 at one and 5 minutes Grossly normal fallopian tubes and ovaries bilaterally Indications: Patient presented for her weekly visit and preoperative visit and office and was noted to have elevated blood pressures. Patient was evaluated triage and noted to also continue to have elevated blood pressures 1. Decision was made to proceed with delivery. All risks benefits and alternatives were discussed with the patient. She was given ample time to ask questions. Consents were signed and placed on the chart. Procedure: Patient was taking to the operating room. Patient was then prepped and draped in sterile fashion after anesthesia was found to be adequate. A low transverse skin incision was made with the scalpel through previous incisional scar and carried down to the underlying layer of fascia with the Bovie. The fascia was then incised in the midline and this incision was extended bilaterally with the Bovie. The superior aspect of the fascia was grasped with Florian clamps tented upward and dissected off of the anterior rectus muscles with the scalpel. In similar fashion the inferior aspect of the fascia was grasped with Florian clamps tented upward and dissected off of the anterior rectus muscles. The rectus muscles were then bluntly divided in the midline. The peritoneum was identified and entered into sharply. The Avi retractor was placed. A lower transverse uterine incision was made with the scalpel and extended bilaterally with the bandage scissors. Artificial rupture of membranes was performed yielding clear amniotic fluid. The 's head was then delivered atraumatically. The anterior shoulder and rest of infant delivered without difficulty. The umbilical cord was clamped x2. The cord was cut. The infant was then placed in sterile bassinet. The cord blood was collected. The placenta was manually extracted in its entirety. The uterus was exteriorized and cleared of all clots and debris. The uterine incision was closed using 0 Vicryl in a running locking fashion. [id number]-yk-[id number] sutures were used along the incision line using 0 Vicryl to secure excellent hemostasis. Attention was then turned to the fallopian tubes. A knuckle of the fallopian tube was suture ligated 2 and transected. Portion of tube was then handed off for pathology. This was done bilaterally The posterior cul-de-sac was copiously irrigated. The uterus was returned to the abdomen. The gutters were also irrigated. He will blasts was placed along the uterine incision with excellent hemostasis noted The anterior rectus muscles were reapproximated using 3-0 Vicryl. The anterior rectus fascia was reapproximated using 0 Vicryl in a running fashion. The subcuticular fat was reapproximated using 2-0 Vicryl in a running fashion. The skin was reapproximated with a 4-0 Monocryl with a subcuticular stitch.. The patient tolerated the procedure well. Sponge lap and needle counts were all correct x3. Patient was taken to the recovery room awake and in stable condition.
[2019-10-18] MEDS ORDERED: KETOROLAC 30 MG/1 ML INJ IV PRN (18:38)
[2019-10-18] MEDS ORDERED: WITCH HAZEL/ GLYCERIN PAD TP PRN (18:38)
[2019-10-18] MEDS ORDERED: BUPIVACAINE/PF (0.5%) 5 MG/1 ML 30 ML VIAL INFILTRATI ONE (18:57)
[2019-10-18] MEDS ORDERED: dexAMETHasone 20 MG/5 ML VIAL ONE (18:57)
[2019-10-18] MEDS ORDERED: SODIUM CHLORIDE 0.9% 100 ML ONE (18:57)
[2019-10-18] MEDS ORDERED: D5W/LACTATED RINGERS 1,000 ML IV SCH (19:00)
--- NOTE | 2019-10-18 19:26 | Post Anesthesia Evaluation ---
- Post Anesthesia Evaluation Patient Participated: Yes Airway Patent: Yes Stable Respiratory Function: Yes Nausea/Vomiting: No Temp > 96.8F: Yes Pain Manageable: Yes Adequeate Hydration: Yes Anesthesia Complications: No Block Receding Appropriately: Yes Patient on Ventilator: No
[2019-10-18] MEDS: HYDROmorphone 1 MG/1 ML INJ IV PRN (22:07)
[2019-10-19] MEDS: CLINDAMYCIN 600 MG/50 mL 600 MG/50 ML BAG IV SCH ×2 (01:09→09:21)
[2019-10-19] MEDS: HYDROmorphone 1 MG/1 ML INJ IV PRN ×2 (01:55→05:56)
[2019-10-19] MEDS ORDERED: TETANUS,DIPH,PERTUSS(ACELL) VACCINE 0.5 ML SYRINGE IM ONE (06:00)
[2019-10-19 07:11] LABS: Hematocrit 32.4 % (30.3-42.9); Hemoglobin 10.8 gm/dl (10.1-14.3)
--- NOTE | 2019-10-19 08:15 | Progress Note ---
Assessment and Plan - Patient Problems (1) delivery delivered Onset Date: ~10/18/19 Current Visit: No Status: Acute Plan to address problem: pt c/o "severe pain, its a 10" Will add one Percocet q6h to see if pain relief is improved. Pt encouraged to be OOB and ambulate in room. VSS FF below umb Lochia scant There is some distention poss caused by gas. BS + P: Will re-eval after medication and ambulation Encouraged pt to report if there is no relief. Subjective - Subjective Date of service: 10/19/19 ("I'm in severe pain.") Principal diagnosis: Day #1 s/p Repeat c/s with tubal Patient reports: voiding normally, pain poorly controlled, ambulating normally [place]: doing well Objective - Vital Signs Latest vital signs: Vital Signs Temp Pulse Resp BP BP Pulse Ox 10/19/19 06:26 18 10/19/19 05:56 18 10/19/19 04:47 97.3 F L 73 18 119/69 99 10/19/19 02:25 18 10/19/19 01:57 97.4 F L 77 18 113/63 97 10/19/19 01:55 18 10/19/19 00:43 18 10/19/19 00:13 18 10/18/19 22:37 18 10/18/19 22:07 18 10/18/19 21:00 98.8 F 73 18 106/63 100 10/18/19 19:50 97.8 F 79 14 101/63 98 10/18/19 19:35 84 15 106/54 98 10/18/19 19:20 69 15 106/61 99 10/18/19 19:05 63 16 86/44 99 10/18/19 19:00 73 14 83/34 98 10/18/19 18:55 81 18 84/45 98 10/18/19 18:50 97.3 F L 73 14 91/51 98 10/18/19 17:04 79 123/78 10/18/19 16:59 89 123/73 10/18/19 16:54 101 H 124/69 10/18/19 16:50 93 H 123/83 10/18/19 16:44 96 H 125/59 10/18/19 16:42 107 H 128/63 10/18/19 16:34 98 H 122/61 10/18/19 16:30 89 121/61 10/18/19 16:24 111 H 104/55 10/18/19 16:20 101 H 115/68 10/18/19 16:15 97 H 122/70 10/18/19 16:09 96 H 115/78 10/18/19 16:05 93 H 129/76 10/18/19 16:00 88 106/56 10/18/19 15:55 92 H 103/59 10/18/19 15:50 103 H 113/68 10/18/19 15:44 90 122/60 10/18/19 15:41 92 H 140/63 10/18/19 15:36 90 122/67 10/18/19 15:15 88 117/77 10/18/19 15:10 92 H 127/72 10/18/19 15:04 100 H 126/70 10/18/19 14:54 92 H 116/67 10/18/19 14:44 87 132/83 10/18/19 14:36 93 H 126/79 10/18/19 14:29 92 H 122/81 10/18/19 14:24 100 H 123/88 10/18/19 14:20 95 H 120/82 10/18/19 14:15 88 125/86 10/18/19 13:44 106 H 116/72 10/18/19 13:39 99 H 112/80 10/18/19 13:34 94 H 119/74 10/18/19 13:29 93 H 122/74 10/18/19 13:24 98 H 119/74 10/18/19 13:19 88 112/67 10/18/19 13:14 86 119/70 10/18/19 13:09 98 H 123/77 10/18/19 13:04 101 H 131/71 10/18/19 12:59 101 H 123/69 10/18/19 12:54 100 H 124/70 10/18/19 12:49 93 H 129/66 10/18/19 12:44 87 131/86 10/18/19 12:39 90 124/79 10/18/19 12:34 90 128/77 10/18/19 12:29 93 H 123/78 10/18/19 12:24 84 120/84 01/31/20 12:19 89 124/82 10/18/19 11:59 89 119/70 10/18/19 11:55 90 118/63 10/18/19 11:48 106 H 106/71 10/18/19 11:44 88 111/67 10/18/19 11:39 88 163/103 10/18/19 11:33 104 H 112/57 10/18/19 11:30 91 H 113/61 10/18/19 11:25 96 H 123/77 10/18/19 11:20 98.3 F 109 H 16 120/82 10/18/19 11:19 102 H 112/84 10/18/19 11:13 90 119/71 10/18/19 11:10 90 123/72 10/18/19 11:05 90 118/69 10/18/19 10:58 109 H 120/82 Intake and Output 10/18/19 10/19/19 10/19/19 22:59 06:59 14:59 Intake Total 1100 840 Output Total 275 900 Balance 825 -60 Intake: IV 1100 Oral 660 Intake, Free Water 180 Output: Urine 275 900 Indwelling Catheter 900 Other: Total, Intake Amount 480 Total, Output Amount 900 Estimated Blood Loss 700 - Exam Breasts: Present: normal Cardiovascular: Present: Regular rate Lungs: Present: Clear to auscultation, Normal air movement Abdomen: Present: normal appearance, soft, normal bowel sounds Uterus: Present: normal, fundal height below umbilicus Extremities: Present: normal Deep Tendon Reflex Grade: Normal +2 Incision: Present: normal, dry, intact, dressed (to be removed later today) - Labs Labs: Abnormal lab results 10/18/19 10/18/19 Range/Units 11:30 11:30 MCHC 35 H (30-34) % Creatinine 0.6 L (0.7-1.2) mg/dL
[2019-10-19] MEDS: oxyCODONE /ACETAMINOPHEN 5-325MG TAB PO PRN ×3 (09:20→22:11)
[2019-10-19] MEDS: LANOLIN/ZINC/DIMETHICONE (LANSINOH) 7 GM TP PRN (09:21)
[2019-10-19] MEDS: FERROUS SULFATE 325 MG TAB PO SCH (09:25)
[2019-10-19] MEDS: HYDROcodone/ACETAMINOPHEN 5-325 MG TAB PO PRN ×2 (12:59→19:48)
[2019-10-19] MEDS: IBUPROFEN 800 MG TAB PO PRN (17:09)
[2019-10-20] MEDS: IBUPROFEN 800 MG TAB PO PRN ×4 (01:09→21:36)
[2019-10-20] MEDS: HYDROcodone/ACETAMINOPHEN 5-325 MG TAB PO PRN ×3 (03:12→14:29)
[2019-10-20] MEDS: oxyCODONE /ACETAMINOPHEN 5-325MG TAB PO PRN ×3 (06:00→18:34)
--- NOTE | 2019-10-20 09:10 | Progress Note ---
Assessment and Plan - Patient Problems (1) delivery delivered Onset Date: ~10/18/19 Current Visit: No Status: Acute Plan to address problem: Pt resting in bed Caring for NB VSS FF below umb Lochia scant Incision D&I Pt states pain is much better managed today Ambulating w/o issue No s/sx of anemia Doing well s/p repeat c/s with tubal. P: Continue pathway Advance as tolerated d/c tomorrow Subjective - Subjective Date of service: 10/20/19 (req d/c tomorrow) Principal diagnosis: Day #2 s/p Repeat c/s with tubal Patient reports: appetite normal, voiding normally, pain well controlled, ambulating normally [place]: doing well Objective - Vital Signs Latest vital signs: Vital Signs Temp Pulse Resp BP BP Pulse Ox 10/20/19 07:00 18 10/20/19 06:00 18 10/20/19 04:12 18 10/20/19 03:12 18 10/20/19 02:09 18 10/20/19 01:09 18 10/20/19 00:00 98.6 F 66 18 105/53 10/19/19 23:11 18 10/19/19 22:11 18 10/19/19 20:48 18 10/19/19 19:48 18 10/19/19 16:09 97.6 F 88 18 128/68 96 10/19/19 11:36 98.1 F 88 18 111/70 96 Intake and Output 10/19/19 10/20/19 10/20/19 22:59 06:59 14:59 Intake Total 500 Balance 500 Intake: Oral 200 Intake, Free Water 300 Other: Total, Intake Amount 200 # Voids Void 1 - Exam Breasts: Present: normal Lungs: Present: Clear to auscultation, Normal air movement Abdomen: Present: normal appearance, soft, normal bowel sounds Uterus: Present: normal, firm, fundal height below umbilicus Extremities: Present: normal Deep Tendon Reflex Grade: Normal +2 Incision: Present: normal, dry, intact
[2019-10-20] MEDS: FERROUS SULFATE 325 MG TAB PO SCH (10:16)
[2019-10-20] MEDS: LANOLIN/ZINC/DIMETHICONE (LANSINOH) 7 GM TP PRN (10:21)
[2019-10-20] MEDS: SERTRALINE 50 MG TAB PO SCH (14:29)
--- NOTE | 2019-10-20 15:31 | Consultation ---
History of Present Illness - Reason for Consult Consult date: 10/20/19 Reason for consult: psychiatric aaseesment - Chief Complaint Chief complaint: headache, prev c/s, elevated b/p sent from office - History of Present Psychiatric Illness Mrs. lion is a 34-year-old -[place] female. Patient is alert and oriented 4, able to make needs known. Dressed appropriately for the occasion,she maintains eye contact the patient is couple days . The patient reports history of depression and anxiety for some time now. She reports that she was taken Lexapro before she got while she was changed to Zoloft the patient reports that she is doing very well on Zoloft would prefer to stay on that medication. The patient reports that her depression is much better she does report periods of crying withdrawal not sleeping or eating well. She reports that since giving depression is not as bad as she thought. Patient denies suicidal or side ideations and contracts to ask the staff for help if any of these symptoms increase. patient denies visual or auditory hallucinations. PAST PSYCHIATRIC HISTORY: Diagnoses: depression Suicide attempts or Self-harm behavior: denies Prior psychiatric hospitalizations denies Substance Abuse history:denies Previous psychiatric medications tried: Zoloft, trazodone Outpatient treatment: denies PAST MEDICAL HISTORY: Family Psychiatric History None reported or documented SOCIAL HISTORY Marital Status: single Living Arrangements: [facility] Employment Status: employed Access to guns/weapons: this Education: college History of Abuse: denies Legal History: denies REVIEW OF SYSTEMS Constitutional: Negative for weight loss ENT: Negative for stridor Respiratory: Negative for cough or hemoptysis All other systems reviewed and are negative MSE Appearance: Wearing appropriate clothing. Good hygiene Behavior: Pleasant and cooperative. Mood: "Good" Affect: Congruent with stated mood Thought Process: Goal directed Speech: Normal rate. Thought Content Harmfulness Denies SI/HI Hallucinations: patient denies Delusions: none elicited Consciousness: alert. Cognition/Memory: normal. Insight/Judgment: fair RECOMMENDATIONS MEDICATIONS: Start Zoloft 50 mg daily Trazodone 50 mg nightly Risks, benefits and alternatives of medications discussed with the patient, questions answered and consent obtained from patient. 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 The patient will do well on outpatient treatment. LEGAL STATUS: FOLLOW-UP: sign off Medications and Allergies Allergies Allergy/AdvReac Type Severity Reaction Status Date / Time Cephalosporins Allergy Rash Verified 08/12/19 12:53 Penicillins Allergy Rash Verified 08/12/19 12:53 Home Medications Medication Instructions Recorded Confirmed Last Taken Type Vit-Fe Fumar-FA [ 1 tab PO QDAY 08/06/18 10/18/19 08/11/19 21:00 History Vitamin] Ferrous Sulfate [Feosol 325 MG tab] 325 mg PO BID #60 tablet 08/16/18 10/18/19 08/11/19 21:00 Rx Sertraline [Zoloft] 50 mg PO QDAY 08/12/19 10/18/19 08/11/19 21:00 History Docusate Sodium [Colace] 100 mg PO BID PRN #60 capsule 10/18/19 Unknown Rx Ferrous Sulfate [Feosol 325 MG tab] 325 mg PO QDAY #60 tablet 10/18/19 Unknown Rx Ibuprofen [Motrin 800 MG tab] 800 mg PO Q8HR PRN #30 tablet 10/18/19 Unknown Rx Lidocain2.5%/Prilocai2.5% [Emla] 2 gm TP ONCE #1 tube 10/18/19 Unknown Rx oxyCODONE /ACETAMINOPHEN [Percocet 1 tab PO Q4HR #30 tab 10/18/19 Unknown Rx 5/325] Active Meds: Active Medications Acetaminophen/Hydrocodone Bitart (Belva 5/325) 1 each PO Q4HR PRN PRN Reason: Pain, Moderate (4-6) Last Admin: 10/20/19 14:29 Dose: 1 each Documented by: Ferrous Sulfate (Feosol) 325 mg PO QDAY DANNY Last Admin: 10/20/19 10:16 Dose: 325 mg Documented by: Hydromorphone HCl (Dilaudid) 0.5 mg IV Q4H PRN PRN Reason: breakthrough pain > 7/10 Last Admin: 10/19/19 05:56 Dose: 0.5 mg Documented by: Oxytocin/Sodium Chloride (Pitocin/Ns 20 Unit/1000ml Drip) 20 units in 1,000 mls @ 250 mls/hr IV DIRECT DANNY Dextrose/Lactated Ringer's (D5lr) 1,000 mls @ 125 mls/hr IV DIRECT DANNY Last Admin: 10/19/19 06:02 Dose: 125 mls/hr Documented by: Ibuprofen (Ibuprofen) 800 mg PO Q6H PRN PRN Reason: Pain, Mild (1-3) Last Admin: 10/20/19 08:51 Dose: 800 mg Documented by: Ketorolac Tromethamine (Toradol) 30 mg IV Q6H PRN PRN Reason: Pain, Moderate (4-6) Stop: 10/23/19 18:37 Last Admin: 10/19/19 00:13 Dose: 30 mg Documented by: Multi-Ingredient Ointment (Lansinoh) 1 applic TP PRN PRN PRN Reason: dryness/cracking Last Admin: 10/20/19 10:21 Dose: 1 applic Documented by: Naloxone HCl (Naloxone) 0.1 mg IV Q2MIN PRN PRN Reason: Res Rate </= 8 or 02 SAT < 92% Ondansetron HCl (Zofran) 4 mg IV Q8H PRN PRN Reason: Nausea And Vomiting Oxycodone/Acetaminophen (Percocet 5/325) 1 tab PO Q6HR PRN PRN Reason: Pain , Severe (7-10) Last Admin: 10/20/19 12:29 Dose: 1 tab Documented by: Promethazine HCl (Phenergan) 25 mg PO Q6H PRN PRN Reason: Nausea And Vomiting Last Admin: 10/19/19 15:43 Dose: 25 mg Documented by: Promethazine HCl (Phenergan) 25 mg MT Q6H PRN PRN Reason: Nausea And Vomiting Sertraline HCl (Zoloft) 50 mg PO QDAY DANNY Last Admin: 10/20/19 14:29 Dose: 50 mg Documented by: Dameon Vinesel/Glycerin (Tucks Pad) 1 each TP PRN PRN PRN Reason: Hemorrhoids/cleansing/soothing Mental Status Exam - Vital signs Last Vital Signs Temp 98.2 F 10/20/19 08:15 Pulse 95 H 10/20/19 08:15 Resp 20 10/20/19 08:15 BP 132/69 10/20/19 08:15 Pulse Ox 96 10/19/19 16:09 Results Result Diagrams: 10/19/19 06:52 10/18/19 11:30 All other labs normal.
[2019-10-20] MEDS ORDERED: traZODone 50 MG TAB PO SCH (22:00)
[2019-10-21] MEDS: oxyCODONE /ACETAMINOPHEN 5-325MG TAB PO PRN ×2 (05:18→12:20)
[2019-10-21] MEDS: IBUPROFEN 800 MG TAB PO PRN (08:04)
--- NOTE | 2019-10-21 08:36 | Discharge Summary ---
Providers - Providers Date of Admission: 10/18/19 12:49 Date of discharge: 10/21/19 (Pt desires to go home.) Attending physician: FRANCISCA DIAZ Primary care physician: FLIGHT ATTENDANT Hospitalization Reason for admission: active labor (Rpt ), section (rpt c- section.) Delivery: Procedure: section, bilateral tubal ligation Episiotomy: none Laceration: none Incision: normal, dry, intact Other procedures: tubal ligation complications: none Discharge diagnosis: IUP at term delivered [place] baby: male Pertinent studies: Pt has history of depression and psych was consultated for recommendations. Recommendations for Zoloft 50mg PO daily and Trazadone 50mg PO nightly for sleep. Pt states that she has refills X2 for Zoloft but has no more refills for Trazadone. Psych department was contacted and I spoke with the psych oil furnace installer Vic who informed me that their is no specific number for OB provider to call for Rx for Trazadone. Vic will contact provider religious education teacher to follow up with writing Rx of Trazadone 50mg nightly. Dr. Diaz aware. Hospital course: S: Doing well. Ambulating, passing flatus, and voiding without difficulty. Desires to go home today. Is bonding well with infant and has not sign's or symptoms of depression. Denies wanting to harm self, others, or infant. O: VSS, adquate I&O's, H/H 10.8/32.4,minimal bleeding noted on pad, FF@U. Incision open to air, intact, dry, no s/sx of infection noted. A: 34 y.o. rpt with BTL @ term, doing well, desires to go home P: Discharge home with instructions. Follow up in clinic in 1 week for incision check and circumcision. Condition at discharge: Good Disposition: DC-01 TO HOME OR SELFCARE Plan - Discharge Medications Prescriptions: Docusate Sodium [Colace] 100 mg PO BID PRN #60 capsule PRN Reason: Constipation Lidocain2.5%/Prilocai2.5% [Emla] 2 gm TP ONCE #1 tube Ferrous Sulfate [Feosol 325 MG tab] 325 mg PO QDAY #60 tablet Ibuprofen [Motrin 800 MG tab] 800 mg PO Q8HR PRN #30 tablet PRN Reason: Pain, Moderate (4-6) oxyCODONE /ACETAMINOPHEN [Percocet 5/325] 1 tab PO Q4HR #30 tab - Provider Discharge Summary Activity: routine, no sex for 6 weeks, no heavy lifting 4 weeks, no strenuous exercise Diet: routine Instructions: routine Additional instructions: [] Smoking cessation referral if applicable(refer to patient education folder for contact #) [] Refer to [facility]'s [facility] Booklet Call your doctor immediately for: * Fever > 100.5 * Heavy vaginal bleeding ( >1 pad per hour) * Severe persistent headache * Shortness of breath * Reddened, hot, painful area to leg or breast * Drainage or odor from incision. * Keep incision clean and dry at all times and follow doctor's instructions regarding bathing/showering - Follow up plan Follow up: PRIMARY CARE, [Primary Care Provider] - 7 Days ROYA MCCOY CNM [Advanced Practice Nurse] - 7 Days (Congratulations!!! Please follow up in 1 week for incision check and your baby's circumcision. You have been prescribed EMLA cream. Please do not use this at home, but bring it with you to your baby's circumcision appointment. Take all medciations as prescribed. ) Forms: [employer] Discharge Summary
[2019-10-21] MEDS: SERTRALINE 50 MG TAB PO SCH (10:28)
[2019-10-21] MEDS: FERROUS SULFATE 325 MG TAB PO SCH (10:28)
[2019-10-21 12:35] VITALS: BP 133/78
== END 2019-10-21 13:40 | disposition home or self-care (01) | DRG 766 ==
LOC: TRG 10:40 → LD 12:49 → OB 21:45
PROVIDERS: ADMIT Obstetrics & Gynecology; ATTEND Obstetrics & Gynecology
PROC: 10D00Z1 Extraction of Products of Conception, Low, Open Approach (ICD-10-PCS; principal; 2019-10-18)
PROC: 0UL70ZZ Occlusion of Bilateral Fallopian Tubes, Open Approach (ICD-10-PCS; 2019-10-18)
PROC: 3E0234Z Introduction of Serum, Toxoid and Vaccine into Muscle, Percutaneous Approach (ICD-10-PCS; 2019-10-20)
DX: O13.4 Gestational [pregnancy-induced] hypertension without significant proteinuria, complicating childbirth (principal); O99.02 Anemia complicating childbirth; D64.9 Anemia, unspecified; O99.344 Other mental disorders complicating childbirth; F32.9 Major depressive disorder, single episode, unspecified; O34.211 Maternal care for low transverse scar from previous cesarean delivery; O99.314 Alcohol use complicating childbirth; F41.8 Other specified anxiety disorders; Z3A.38 38 weeks gestation of pregnancy; Z37.0 Single live birth; Z23 Encounter for immunization; Z83.3 Family history of diabetes mellitus; Z82.49 Family history of ischemic heart disease and other diseases of the circulatory system; Z87.891 Personal history of nicotine dependence; Z84.1 Family history of disorders of kidney and ureter; Z88.0 Allergy status to penicillin; Z88.1 Allergy status to other antibiotic agents; Z30.2 Encounter for sterilization; O09.523 Supervision of elderly multigravida, third trimester
CPT/HCPCS: 36415; 81001; 82565; 83615; 84450; 84460; 84550; 85014; 85018; 85027; 86850; 86900; 86901; 88302; 88307; G0378; A6250; J1100; J1170; J1580; J1885; J2370; J2405; J2590; J2765; J3490; J7120; J7121; Q0169

== ENCOUNTER 2020-11-24 17:12 | Emergency (ER) | payer OTHER ==
[2020-11-24 17:53] VITALS: BP 118/60
--- NOTE | 2020-11-24 18:10 | Emergency Department Report ---
Blank Doc - Documentation Documentation: 35-year-old female that presents with upper abdominal pain with n/v and diarrh ea. 1- This initial assessment/diagnostic orders/clinical plan/ treatment(s) is/are subject to change based on pt's health status, clinical progression and re- assessment by fellow clinical providers in the ED. Further treatment and workup at subsequent clinical provers discretion. Patient/guardians urged not to elope from ED as their condition may be serious if not clinically assessed and managed . 2-labs 3-UA
[2020-11-24 19:07] LABS: Basophils % (Auto) 0.1 % (0.0-1.8); Eosinophils % (Auto) 0.3 % (0.0-4.3); Hematocrit 36.2 % (30.3-42.9); Hemoglobin 12.4 gm/dl (10.1-14.3); Lymphocytes # (Auto) 1.5 K/mm3 (1.2-5.4); Lymphocytes % (Auto) 16.2 % (13.4-35.0); Mean Corpuscular HGB Conc 34 % (30-34); Mean Corpuscular Volume 88 fl (79-97); Monocytes # (Auto) 0.5 K/mm3 (0.0-0.8); Monocytes % (Auto) 5.3 % (0.0-7.3); Platelet Count 301 K/mm3 (140-440); Red Blood Count 4.13 M/mm3 (3.65-5.03); Red Cell Distribution Width 13.4 % (13.2-15.2)
[2020-11-24 19:30] LABS: Alanine Aminotransferase 14 units/L (7-56); Albumin 4.5 g/dL (3.9-5); Blood Urea Nitrogen 5 mg/dL (7-17); Calcium 8.6 mg/dL (8.4-10.2); Hemolysis Index 7
[2020-11-24 19:32] LABS: BUN/Creatinine Ratio 10
[2020-11-24] MEDS ORDERED: ALUM-MAG HYDROXIDE-SIMETHICONE 200-200-20MG/5ML ORAL LIQD 30 ML PO ONE (20:13)
[2020-11-24] MEDS ORDERED: POTASSIUM CHLORIDE ER 20 MEQ TAB PO ONE (20:13)
[2020-11-24] MEDS ORDERED: FAMOTIDINE 20 MG TAB PO ONE (20:13)
[2020-11-24] MEDS ORDERED: ONDANSETRON 4 MG ODT TAB PO ONE (20:13)
--- NOTE | 2020-11-24 20:44 | Emergency Department Report ---
ED N/V/D HPI - General Chief complaint: Abdominal Pain Stated complaint: N/V ABD PAIN, HEADACHE, CHILLS Time Seen by Provider: 11/24/20 18:06 Source: patient Mode of arrival: Ambulatory Limitations: No Limitations - History of Present Illness Initial comments: Patient is a 35-year-old female presents emergency room complaints of nausea, vomiting, diarrhea that began early this morning around 1 AM. She has associated left upper quadrant cramping. She denies any known sick contacts. She states that she had salmon last night and that no one else got sick. She denies any fever, urinary symptoms, back pain, vaginal discharge, hematochezia, hematemesis, melena. She denies any recent travel, recent antibiotics, water from a different source, recent camping. PMHx anxiety, ovarian cyst. She has an allergy to cephalosporins and penicillins. She states her last menstrual cycle was last month. - Related Data Home Medications Medication Instructions Recorded Confirmed Last Taken Vit-Fe Fumar-FA [ 1 tab PO QDAY 08/06/18 10/18/19 08/11/19 21:00 Vitamin] Previous Rx's Medication Instructions Recorded Last Taken Type Ferrous Sulfate [Feosol 325 MG tab] 325 mg PO BID #60 tablet 08/16/18 08/11/19 21:00 Rx Docusate Sodium [Colace] 100 mg PO BID PRN #60 capsule 10/18/19 Unknown Rx Ferrous Sulfate [Feosol 325 MG tab] 325 mg PO QDAY #60 tablet 10/18/19 Unknown Rx Ibuprofen [Motrin 800 MG tab] 800 mg PO Q8HR PRN #30 tablet 10/18/19 Unknown Rx Lidocain2.5%/Prilocai2.5% [Emla] 2 gm TP ONCE #1 tube 10/18/19 Unknown Rx oxyCODONE /ACETAMINOPHEN [Percocet 1 tab PO Q4HR #30 tab 10/18/19 Unknown Rx 5/325] Sertraline [Zoloft] 50 mg PO QDAY #30 10/21/19 Unknown Rx Sertraline [Zoloft] 50 mg PO QDAY #30 tablet 10/21/19 Unknown Rx Sertraline [Zoloft] 50 mg PO QDAY #60 tablet 10/21/19 Unknown Rx traZODone [Desyrel] 50 mg PO QHS #30 tablet 10/21/19 Unknown Rx Allergies Allergy/AdvReac Type Severity Reaction Status Date / Time Cephalosporins Allergy Rash Verified 08/12/19 12:53 Penicillins Allergy Rash Verified 08/12/19 12:53 ED Review of Systems ROS: Stated complaint: N/V ABD PAIN, HEADACHE, CHILLS Other details as noted in HPI Comment: All other systems reviewed and negative ED Past Medical Hx - Past Medical History Previous Medical History?: Yes Hx Hypertension: No Hx Congestive Heart Failure: No Hx Diabetes: No Hx Deep Vein Thrombosis: No Hx Renal Disease: No Hx Sickle Cell Disease: No Hx Headaches / Migraines: Yes Hx Seizures: No Hx Psychiatric Treatment: Yes (anxiety) Hx Asthma: No Hx COPD: No Hx HIV: No Additional medical history: heart murmur, chronic hip/back pain - Surgical History Past Surgical History?: Yes Additional Surgical History: cyst removed from ovaries. x 2 - Social History Smoking Status: Never Smoker Substance Use Type: None - Medications Home Medications: Home Medications Medication Instructions Recorded Confirmed Last Taken Type Vit-Fe Fumar-FA [ 1 tab PO QDAY 08/06/18 10/18/19 08/11/19 21:00 History Vitamin] Ferrous Sulfate [Feosol 325 MG tab] 325 mg PO BID #60 tablet 08/16/18 10/18/19 08/11/19 21:00 Rx Docusate Sodium [Colace] 100 mg PO BID PRN #60 capsule 10/18/19 Unknown Rx Ferrous Sulfate [Feosol 325 MG tab] 325 mg PO QDAY #60 tablet 10/18/19 Unknown Rx Ibuprofen [Motrin 800 MG tab] 800 mg PO Q8HR PRN #30 tablet 10/18/19 Unknown Rx Lidocain2.5%/Prilocai2.5% [Emla] 2 gm TP ONCE #1 tube 10/18/19 Unknown Rx oxyCODONE /ACETAMINOPHEN [Percocet 1 tab PO Q4HR #30 tab 10/18/19 Unknown Rx 5/325] Sertraline [Zoloft] 50 mg PO QDAY #30 10/21/19 Unknown Rx Sertraline [Zoloft] 50 mg PO QDAY #30 tablet 10/21/19 Unknown Rx Sertraline [Zoloft] 50 mg PO QDAY #60 tablet 10/21/19 Unknown Rx traZODone [Desyrel] 50 mg PO QHS #30 tablet 10/21/19 Unknown Rx ED Physical Exam - General Limitations: No Limitations General appearance: alert, in no apparent distress - Head Head exam: Present: atraumatic, normocephalic - Eye Eye exam: Present: normal appearance - ENT ENT exam: Present: mucous membranes moist - Respiratory Respiratory exam: Present: normal lung sounds bilaterally. Absent: respiratory distress, wheezes, rales, rhonchi, stridor, chest wall tenderness, accessory muscle use, decreased breath sounds, prolonged expiratory - Cardiovascular Cardiovascular Exam: Present: regular rate, normal rhythm, normal heart sounds. Absent: systolic murmur, diastolic murmur, rubs, gallop - GI/Abdominal GI/Abdominal exam: Present: soft, normal bowel sounds. Absent: distended, tenderness, guarding, rebound, rigid - Neurological Exam Neurological exam: Present: alert, oriented X3 - Psychiatric Psychiatric exam: Present: normal affect, normal mood - Skin Skin exam: Present: warm, dry, intact ED Course Vital Signs 11/24/20 17:51 Temperature 99.6 F Pulse Rate 105 H Respiratory 18 Rate Blood Pressure 118/60 O2 Sat by Pulse 100 Oximetry ED Medical Decision Making - Lab Data Result diagrams: 11/24/20 18:40 11/24/20 18:40 Lab Results 11/24/20 11/24/20 11/24/20 Range/Units 18:40 18:40 18:40 WBC 9.0 (4.5-11.0) K/mm3 RBC 4.13 (3.65-5.03) M/mm3 Hgb 12.4 (10.1-14.3) gm/dl Hct 36.2 (30.3-42.9) % MCV 88 (79-97) fl MCH 30 (28-32) pg MCHC 34 (30-34) % RDW 13.4 (13.2-15.2) % Plt Count 301 (140-440) K/mm3 Lymph % (Auto) 16.2 (13.4-35.0) % [place] % (Auto) 5.3 (0.0-7.3) % Eos % (Auto) 0.3 (0.0-4.3) % Baso % (Auto) 0.1 (0.0-1.8) % Lymph # (Auto) 1.5 (1.2-5.4) K/mm3 [place] # (Auto) 0.5 (0.0-0.8) K/mm3 Eos # (Auto) 0.0 (0.0-0.4) K/mm3 Baso # (Auto) 0.0 (0.0-0.1) K/mm3 Seg Neutrophils % 78.1 H (40.0-70.0) % Seg Neutrophils # 7.1 (1.8-7.7) K/mm3 Sodium 136 L (137-145) mmol/L Potassium 3.2 L (3.6-5.0) mmol/L Chloride 100.5 (98-107) mmol/L Carbon Dioxide 26 (22-30) mmol/L Anion Gap 13 mmol/L BUN 5 L (7-17) mg/dL Creatinine 0.5 L (0.6-1.2) mg/dL Estimated GFR > 60 ml/min BUN/Creatinine Ratio 10 % Glucose 101 H (65-100) mg/dL Calcium 8.6 (8.4-10.2) mg/dL Total Bilirubin 0.50 (0.1-1.2) mg/dL AST 15 (5-40) units/L ALT 14 (7-56) units/L Alkaline Phosphatase 62 (35-129) units/L Total Protein 7.3 (6.3-8.2) g/dL Albumin 4.5 (3.9-5) g/dL Albumin/Globulin Ratio 1.6 % Lipase 16 (13-60) units/L HCG, Qual Negative (Negative) - Medical Decision Making Patient is a 35-year-old female presents emergency room complaints of nausea, vomiting, diarrhea that began early this morning around 1 AM. She has associated left upper quadrant cramping. She denies any known sick contacts. She states that she had salmon last night and that no one else got sick. She denies any fever, urinary symptoms, back pain, vaginal discharge, hematochezia, hematemesis, melena. She denies any recent travel, recent antibiotics, water from a different source, recent camping. PMHx anxiety, ovarian cyst. She has an allergy to cephalosporins and penicillins. She states her last menstrual cycle was last month. vss. She has no tachycardia on auscultation. No abdominal tenderness on exam, guarding guarding, no rebound, no rigidity, normal bowel sounds, no peritoneal signs. Labs with mild hypokalemia, otherwise stable. Repleted potassium with K-Dur. Advised patient that we would give her p.o. medications and reevaluate. Advised patient that we would need a urine sample and I personally gave patient urine cup. Patient eloped from the emergency department after medications, prior to reexamination and prior to giving urine sample Critical care attestation.: If time is entered above; I have spent that time in minutes in the direct care of this critically ill patient, excluding procedure time. ED Disposition Clinical Impression: Nausea vomiting and diarrhea, Abdominal cramping Disposition: ELOPED Is pt being admited?: No Does the pt Need Aspirin: No Condition: Undetermined Instructions: Abdominal Pain (ED) Referrals: PRIMARY CARE, [Primary Care Provider] - PADMINI
== END 2020-11-24 23:00 | disposition left against medical advice (07) ==
LOC: ED 17:12
DX: R11.2 Nausea with vomiting, unspecified (principal); R19.7 Diarrhea, unspecified; R10.12 Left upper quadrant pain; G43.909 Migraine, unspecified, not intractable, without status migrainosus; F41.9 Anxiety disorder, unspecified; Z98.890 Other specified postprocedural states; Z79.899 Other long term (current) drug therapy; Z88.0 Allergy status to penicillin; Z88.8 Allergy status to other drugs, medicaments and biological substances
CPT/HCPCS: 36415; 80053; 83690; 84703; 85025; Q0162

== ENCOUNTER 2022-05-11 09:57 | Emergency (ER) | payer SELFPAY ==
[2022-05-11 11:03] VITALS: BP 125/77
--- NOTE | 2022-05-11 11:30 | XRay Report ---
XR chest routine 2V INDICATION / CLINICAL INFORMATION: chest pain. COMPARISON: None available. FINDINGS: SUPPORT DEVICES: None. HEART /PULMONARY VASCULATURE: No significant abnormality. LUNGS / PLEURA: No significant pulmonary or pleural abnormality. No pneumothorax. ADDITIONAL FINDINGS: No significant additional findings. IMPRESSION: 1. No acute findings. Signer Name: Wili Ramos MD Signed: 05/11/2022 11:25 AM Workstation Name: [id number]
--- NOTE | 2022-05-12 09:54 | Electrocardiograph Report ---
[facility] Test Date: 2022-05-11 Test Time: 11:05:40 Pat Name: PATT JOHNSON Department: Room: Gender: F Dinkey Operator Slag: [id number] : 1985 Requested By: TICO SIMMONS Order Number: [id number] Reading MD: Louie Hudson Measurements Intervals [place] Rate: 72 P: 31 [place]: 158 QRS: 24 QRSD: 97 T: 27 QT: 399 QTc: 437 Interpretive Statements Sinus rhythm No previous ECG available for comparison Electronically Signed On 05-12-2022 9:54:00 EDT by Louie Hudson
== END 2022-05-11 23:30 | disposition left against medical advice (07) ==
LOC: ED 09:57
DX: R22.0 Localized swelling, mass and lump, head (principal); Z53.21 Procedure and treatment not carried out due to patient leaving prior to being seen by health care provider
CPT/HCPCS: 71046; 93005